=== PATIENT | female | born 1990 | race Caucasian/White ===

== ENCOUNTER 2023-11-08 12:25 | Outpatient (CLI) | payer BC | END 2023-11-08 12:26 | disposition home or self-care (01) | LOC: CSHULT 12:25 | PROVIDERS: ATTEND Nurse Practitioner Family | DX: R60.0 Localized edema (principal); I83.91 Asymptomatic varicose veins of right lower extremity; R93.6 Abnormal findings on diagnostic imaging of limbs | CPT/HCPCS: 93923 ==